=== PATIENT | male | born 1950 ===

== ENCOUNTER → 2020-02-17 | Outpatient (CLI) | payer OTHER | END | disposition home or self-care (01) | LOC: PLD 13:23 → LAB SHORT 13:23 | DX: C44.319 Basal cell carcinoma of skin of other parts of face (principal) | CPT/HCPCS: 88305 ==

== ENCOUNTER 2024-01-05 06:28 | Day surgery (SDC) | payer OTHER ==
[~2024-01-05] VITALS: Ht 175.3 cm; Wt 79.2 kg
[2024-01-05] VITALS (17 sets, daily range): BP systolic 112–157; BP diastolic 63–91
[~2024-01-05 06:28] MED LIST: Lactated Ringer's 1,000 ML IV SCH; MECL25 PO
[2024-01-05] MEDS ORDERED: propofoL 40 ML IV ONE (07:23)
--- NOTE | 2024-01-05 07:36 | NUR ---
01/05/24 0736 Mick Singer HISTORY, CHART, MEDICATIONS AND ALLERGIES REVIEWED BEFORE START OF PROCEDURE. PATIENT CONFIRMS NPO STATUS AND AGREES WITH SCHEDULED PROCEDURE. 3-LEAD EKG REVIEWED WITH PHYSICIAN PRIOR TO START OF PROCEDURE. MONITOR INTACT WITH CONTINUOUS PULSE OXIMETRY,CAPNOGRAPHY, 3-LEAD EKG, INTERMITTENT BP. SUPPLEMENTAL O2 TO BE TITRATED THROUGHOUT PROCEDURE TO MAINTAIN O2 SATURATION ABOVE 90%. PATIENT DETERMINED TO BE ASA APPROPRIATE FOR PROPOFOL SEDATION PRIOR TO START OF PROCEDURE BY DR. MEIER.
--- NOTE | 2024-01-05 08:16 | NUR ---
0805 REPORT RECEIVED FROM REN ESPINOZA. VSS. PT ON RA. PT ABLE TO REPOSITION SELF IN BED. PT REQUESTING PO FLUIDS AND TOLERATING THEM WELL. PT DENIES PAIN, NAUSEA OR OTHER DISCOMFORTS.
--- NOTE | 2024-01-05 08:25 | NUR ---
Discharge instructions reviewed with patient. Patient verbalizes understanding. Copy given to patient to take home. Discharged via wheelchair to private car for ride home.
== END 2024-01-05 08:26 | disposition home or self-care (01) ==
LOC: ORSCMMR 06:28 → ORD 07:30 → ORSCMMR 07:30
PROVIDERS: Internal Medicine Gastroenterology
PROC: 0DBL8ZX Excision of Transverse Colon, Via Natural or Artificial Opening Endoscopic, Diagnostic (ICD-10-PCS; principal; 2024-01-05 07:30)
PROC: 0DBH8ZX Excision of Cecum, Via Natural or Artificial Opening Endoscopic, Diagnostic (ICD-10-PCS; principal; 2024-01-05 07:30)
DX: Z12.11 Encounter for screening for malignant neoplasm of colon (principal); D12.0 Benign neoplasm of cecum; D12.3 Benign neoplasm of transverse colon; K57.30 Diverticulosis of large intestine without perforation or abscess without bleeding; K64.4 Residual hemorrhoidal skin tags; K64.8 Other hemorrhoids
CPT/HCPCS: 88305; J2704; J7120

== ENCOUNTER → 2024-01-11 | Outpatient (CLI) | payer OTHER ==
[~2024-01-11] MED LIST changes: -Lactated Ringer's 1,000 ML IV SCH
== END | disposition home or self-care (01) ==
LOC: LAB SHORT 09:45
DX: M86.9 Osteomyelitis, unspecified (principal)
CPT/HCPCS: 87070; 87205

== ENCOUNTER → 2024-01-11 | Outpatient (CLI) | payer OTHER | END | disposition home or self-care (01) | LOC: LAB SHORT 10:31 | DX: M86.9 Osteomyelitis, unspecified (principal) | CPT/HCPCS: 88305; 88311 ==